=== PATIENT | male | born 1985 | race Caucasian/White ===

== ENCOUNTER 2018-05-24 00:16 | Emergency (ER) | payer OTHER ==
[~2018-05-24] VITALS: Ht 185.4 cm; Wt 88.5 kg
[~2018-05-24 00:16] MED LIST: ACYC800 PO; BUDE200IP IH; CLOT1TC TOP; CYCL10 PO; DIAZ5 PO; HYDACE5 PO; IBUP600 PO; IBUP800 PO; MOMENI; Norco 5-325 Ta1 EACH PO; OXYACE5T PO; PROM25 PO; SULTRIDS PO; Zantac150 MG PO
[2018-05-24 01:49] LABS: BASOPHILS ABSOLUTE AUTO 0.07 K/mm3 (0.00-0.23); BASOPHILS PERCENT AUTO 1 % (0-2); EOSINOPHILS ABSOLUTE AUTO 0.35 K/mm3 (0.00-0.68); EOSINOPHILS PERCENT AUTO 4 % (0-6); Hematocrit 42.5 % (37.0-53.0); Hemoglobin 14.6 g/dL (13.5-17.5); IMMATURE GRAN ABSOLUTE AUTO 0.04 K/mm3 (0.00-0.10); IMMATURE GRAN PERCENT AUTO 0 % (0-1); LYMPHOCYTES ABSOLUTE AUTO 2.71 K/mm3 (0.84-5.20); LYMPHOCYTES PERCENT AUTO 28 % (21-46); MONOCYTES ABSOLUTE AUTO 0.57 K/mm3 (0.16-1.47); MONOCYTES PERCENT AUTO 6 % (4-13); Mean Corpuscular HGB 29.9 pg (26.0-34.0); Mean Corpuscular HGB Conc 34.4 g/dL (31.5-36.5); Mean Corpuscular Volume 87 fL (80-100); Mean Platelet Volume 9.6 fL (9.1-12.4); NEUTROPHILS ABSOLUTE AUTO 5.97 K/mm3 (1.96-9.15); NEUTROPHILS PERCENT AUTO 62 % (41-73); Platelet Count 247 K/mm3 (150-400); RDW Coefficient Variation 12.4 % (11.7-14.2); RDW Standard Deviation 39.2 fL (35.1-46.3); Red Blood Cell Count 4.88 M/mm3 (4.30-5.90); White Blood Cell Count 9.71 K/mm3 (4.00-11.30)
[2018-05-24 01:50] LABS: Alanine Aminotransfer (ALT/SGP 32 U/L (12-78); Albumin, Blood 4.1 g/dL (3.4-5.0); Albumin/Globulin Ratio 1.1 (0.8-1.8); Alk Phos 83 U/L (50-136); Anion Gap 11 mmol/L (6-16); Aspartate Aminotrans (AST/SGOT 44 U/L (12-37); Bilirubin, Total 0.3 mg/dL (0.1-1.0); Blood Urea Nitrogen 9 mg/dL (8-24); Bun/Creatinine Ratio 13.3 (12.0-20.0); CO2, Blood 24 mmol/L (21-32); Calcium, Blood 8.2 mg/dL (8.5-10.1); Chloride, Blood 108 mmol/L (98-108); Creatinine, Blood 0.68 mg/dL (0.60-1.20); Globulin, Blood 3.7 g/dL (2.2-4.0); Glomerular Filtration Rate >60 (60-); Glucose, Blood 101 mg/dL (70-99); Potassium, Blood 5.8 mmol/L (3.5-5.5); Sodium, Blood 143 mmol/L (136-145); Total Protein, Blood 7.8 g/dL (6.4-8.2)
[2018-05-24 02:03] LABS: Ethanol (Alcohol), Blood, Med 322 mg/dL
[2018-05-24 02:04] LABS: International Normalized Ratio 1.04; Prothrombin Time Results 10.7 Sec (9.7-11.5)
== END 2018-05-24 04:04 | disposition short-term general hospital (02) ==
LOC: ER 00:16
PROVIDERS: Emergency Medicine
DX: S06.6X9A Traumatic subarachnoid hemorrhage with loss of consciousness of unspecified duration, initial encounter (principal); S02.19XA Other fracture of base of skull, initial encounter for closed fracture; S02.119A Unspecified fracture of occiput, initial encounter for closed fracture; F10.129 Alcohol abuse with intoxication, unspecified; F17.200 Nicotine dependence, unspecified, uncomplicated; Z88.5 Allergy status to narcotic agent; W17.89XA Other fall from one level to another, initial encounter; Y92.481 Parking lot as the place of occurrence of the external cause; Y90.8 Blood alcohol level of 240 mg/100 ml or more
CPT/HCPCS: 36415; 70450; 71045; 72125; 80053; 85025; 85610; 85730; 96374; 99285; G0480; J1953

== ENCOUNTER 2018-06-12 07:57 | Emergency (ER) | payer OTHER, BC ==
[~2018-06-12] VITALS: Ht 185.4 cm; Wt 93.0 kg
[2018-06-12] MEDS ORDERED: Norco 5-325 Ta1 EACH PO (13:30)
== END 2018-06-12 13:58 | disposition home or self-care (01) ==
LOC: ER 07:57
DX: I62.02 Nontraumatic subacute subdural hemorrhage (principal); F17.200 Nicotine dependence, unspecified, uncomplicated; Z88.5 Allergy status to narcotic agent
CPT/HCPCS: 36415; 70450; 70496; 96360; 99284-25; J7030; Q9967

== ENCOUNTER 2018-07-01 12:20 | Emergency (ER) | payer BC, OTHER ==
[~2018-07-01] VITALS: Ht 185.4 cm; Wt 97.5 kg
== END 2018-07-01 14:08 | disposition home or self-care (01) ==
LOC: ER 12:20
DX: R51 Headache (principal); F17.200 Nicotine dependence, unspecified, uncomplicated; Z88.5 Allergy status to narcotic agent
CPT/HCPCS: 70450; 99283-25

== ENCOUNTER 2023-08-30 21:30 | Observation (INO) | payer OTHER ==
[~2023-08-30] VITALS: Ht 188 cm; Wt 96.2 kg
[2023-08-30 22:58] LABS: BASOPHILS ABSOLUTE AUTO 0.04 K/mm3 (0.00-0.23); BASOPHILS PERCENT AUTO 0 % (0-2); EOSINOPHILS ABSOLUTE AUTO 0.27 K/mm3 (0.00-0.68); EOSINOPHILS PERCENT AUTO 3 % (0-6); Hematocrit 40.7 % (37.0-53.0); Hemoglobin 14.1 g/dL (13.5-17.5); IMMATURE GRAN ABSOLUTE AUTO 0.02 K/mm3 (0.00-0.10); IMMATURE GRAN PERCENT AUTO 0 % (0-1); LYMPHOCYTES ABSOLUTE AUTO 1.96 K/mm3 (0.84-5.20); LYMPHOCYTES PERCENT AUTO 18 % (21-46); MONOCYTES ABSOLUTE AUTO 0.72 K/mm3 (0.16-1.47); MONOCYTES PERCENT AUTO 7 % (4-13); Mean Corpuscular HGB 30.6 pg (26.0-34.0); Mean Corpuscular HGB Conc 34.6 g/dL (31.5-36.5); Mean Corpuscular Volume 88 fL (80-100); Mean Platelet Volume 9.9 fL (9.1-12.4); NEUTROPHILS ABSOLUTE AUTO 7.73 K/mm3 (1.96-9.15); NEUTROPHILS PERCENT AUTO 72 % (41-73); Platelet Count 233 K/mm3 (150-400); RDW Coefficient Variation 12.3 % (11.7-14.2); RDW Standard Deviation 39.8 fL (35.1-46.3); Red Blood Cell Count 4.61 M/mm3 (4.30-5.90); White Blood Cell Count 10.74 K/mm3 (4.00-11.30)
[2023-08-30 23:16] LABS: Albumin/Globulin Ratio 1.2 (0.8-1.8); Bilirubin, Total 0.2 mg/dL (0.1-1.0); Bun/Creatinine Ratio 10.9 (12.0-20.0); Creatinine, Blood 0.73 mg/dL (0.60-1.20); Globulin, Blood 3.3 g/dL (2.2-4.0); Potassium, Blood 4.1 mmol/L (3.5-5.5); Total Protein, Blood 7.3 g/dL (6.4-8.2)
[2023-08-31] VITALS (13 sets, daily range): BP systolic 144–168; BP diastolic 72–99
--- NOTE | 2023-08-31 00:14 | NUR ---
ARRIVAL PT ARRIVED TO FLOOR VIA GOURNEY. TRANSFERRED TO BED VIA SLIDER. A&0x4. VSS. LEFT EXTREMITY ANDREIA WRAPPED WITH SPLINT. FLUIDS RUNNING, MEDICATED PER EMAR FOR PAIN. PT REPORTS PAIN NOT ADEQUATELY COVERED. PT EDUCATED ABOUT PAIN MANAGEMENT AND LIMITATIONS WHEN USING ALCOHOL DAILY/MAR[place] WEEKLY AT HOME. ONE PERSONAL ITEM BAG. ORIENTED TO ROOM/UNIT. BED IN LOWEST POSITION, CALL LIGHT WITHIN REACH.
--- NOTE | 2023-08-31 05:03 | NUR ---
SHIFT SUMMARY PT ADMIT c LEFT TIB/FIB FX. PT NPO SINCE MIDNIGHT AWAITING SURGICAL CONSULT. PT ON BEDREST. NO ACUTE CHANGES OVERNIGHT. A&O x4. VSS. PT REPORTS DRINKING 2-3 BEERS ON WEEKNIGHTS AND "BINGE" DRINKING ON WEEKENDS. CIWA PRECAUTIONS IN PLACE, NO SIGNIFICANT SCORES OVERNIGHT. PT PAIN MEDICATED PER EMAR. BED IN LOWEST POSITION, CALL LIGHT WITHIN REACH, WILL REPORT TO DAY RN.
--- NOTE | 2023-08-31 06:34 | NUR ---
CHANGE PT SHORTS REMOVED VIA TRAUMA LEONARDO. PT CONSENTED TO HAVING CLOTHING CUT OFF AND DISPOSED OF. PT PUT INTO GOWN AND PRE-OP WIPE-DOWN COMPLETE.
--- NOTE | 2023-08-31 14:02 | NUR ---
PATIENT WAS TAKEN BACK TO THE OR.
[2023-08-31 17:40] LABS: Hematocrit 35.7 % (37.0-53.0); Hemoglobin 12.4 g/dL (13.5-17.5)
--- NOTE | 2023-08-31 20:45 | NUR ---
ARRIVAL TO UNIT PT ARRIVED FROM PACU ON BED. WEANED OFF 02, MAINTAINING O2 SAT>95% ON RA. PT SLEEPY, STATES "I'M EXHAUSTED," RESPONDS TO VERBAL STIMULI. LEFT LEG ELEVATED, ICE PACK IN PLACE. PT STATES PAIN TOLERATBLE AT THIS TIME. ANDREIA WRAP C/D/I. AT BEDSIDE. CALL LIGHT WITHIN REACH, BED IN LOWEST POSITION.
[2023-09-01 03:28] VITALS: BP 146/98
--- NOTE | 2023-09-01 04:21 | NUR ---
SHIFT SUMMARY POD 1 L TIB/FIB FX REPAIR. NO ACUTE CHANGES OVERNIGHT. VS WNL FOR PT, O2 SAT >95% ON RA. A&O x4. PT TOLERATING ORALS. PAIN MEDICATION PO ONLY AT THIS TIME. PT REPORTS PAIN MANAGEMENT TOLERABLE. SALIENE LOCKED. PT USING URINAL, NO BM OVERNIGHT. PT HAS NOT ATTEMPTED TO GET OUT OF BED THIS SHIFT. L LEG IS ELEVATED WITH ICE PACKS IN PLACE. CALL LIGHT IN REACH, BED IN LOWEST POSITION, WILL REPORT TO DAY RN.
[2023-09-01 07:23] VITALS: BP 147/94
--- NOTE | 2023-09-01 07:45 | NUR ---
THERE IS NO FLORES PRESENT IN PATIENT AT THE TIME OF A.M. ASSESSMENT.
[2023-09-01 12:30] VITALS: BP 156/97
[2023-09-01] MEDS ORDERED: OXYC5 PO (16:26)
--- NOTE | 2023-09-01 16:45 | NUR ---
DISCHARGE SUMMARY PT A&OX4, VSS/RA, LARRY PO, VOIDING, PAIN MANAGED, IV DC'D. WORKED WITH PHYSICAL THERAPY: AMB W/FWW SBA, UP TO CHAIR. DC INS PROVIDED. PT AND REPORTED UNDERSTANDING THOSE INSTRUCTIONS INCLUDING NARC SCRIPT AT [facility], FU WITH DR STOCKTON, ICE AND ELEVATE AT REST, TCDB/I.S., WHEN TO CALL THE SURGEON. LEFT FLOOR VIA WC WITH ALL PERSONAL POSSESSIONS TO GO HOME WITH .
--- NOTE | 2023-09-04 10:34 | NUR ---
09/04/23 1034 Nadege Muñoz VERIFICATIONS: EDIT CHART.
== END 2023-09-01 17:00 | disposition home or self-care (01) ==
LOC: ER 21:30 → SURS 21:31
PROVIDERS: Anesthesiology; Physician Assistant; ADMIT Orthopaedic Surgery
PROC: 0QSH06Z Reposition Left Tibia with Intramedullary Internal Fixation Device, Open Approach (ICD-10-PCS; principal; 2023-08-30)
DX: S82.252A Displaced comminuted fracture of shaft of left tibia, initial encounter for closed fracture (principal); S82.452A Displaced comminuted fracture of shaft of left fibula, initial encounter for closed fracture; W22.8XXA Striking against or struck by other objects, initial encounter; F17.200 Nicotine dependence, unspecified, uncomplicated
CPT/HCPCS: 27752; 73590; 80053; 85014; 85018; 85025; 86850; 86900; 86901; 96374-59; 96375; 96376; 97110; 97116; 97161; 97530; 99285-25; A9270; C1769; G0378; J0690; J1100; J1170; J1885; J2250; J2405; J2704; J3010; J7120

== ENCOUNTER 2024-12-07 06:01 | Day surgery (SDC) | payer OTHER ==
[~2024-12-07] VITALS: Ht 181 cm; Wt 102.6 kg
[2024-12-07] VITALS (8 sets, daily range): BP systolic 98–142; BP diastolic 62–97
[~2024-12-07 06:01] MED LIST changes: +OXYC5 PO
[2024-12-07] MEDS ORDERED: Lactated Ringer's 1,000 ML IV SCH (06:20)
[2024-12-07] MEDS ORDERED: CeFAZolin Sodium 2,000 MG in NS 100 ML IV SCH (06:20)
[2024-12-07] MEDS ORDERED: propofoL 20 ML IV ONE (06:58)
[2024-12-07] MEDS ORDERED: FentaNYL Citrate 50 MCG/ML 2 ML Injection ONE (06:58)
[2024-12-07] MEDS ORDERED: Lidocaine HCl 2% 20 ML MDV ONE (06:59)
[2024-12-07] MEDS ORDERED: Ondansetron HCl 2 MG / ML 2ML Vial ONE (06:59)
[2024-12-07] MEDS ORDERED: Dexamethasone Sod Phos 10 MG/ML 1ML VIAL ONE (06:59)
[2024-12-07] MEDS ORDERED: Bupivacaine 0.5% HCl 5 MG/ML 30MLVIAL ONE (07:05)
[2024-12-07] MEDS ORDERED: Midazolam HCl 1MG / ML 2ML Vial IV ONE (07:20)
--- NOTE | 2024-12-07 07:20 | NUR ---
History, Chart, Medications and Allergies reviewed before start of procedure. Patient up to Ambulate independently. Gait steady. Pre-Op teaching done. Pt verbalizes understanding. Patient confirms NPO status and agrees with scheduled surgery. Patient reports completing Chlorhexadine shower X2 prior to admission to hospital. Surgical site prepped with 2% Chlorhexidine cloth wipe. Patient States Post-Procedure ride home has been arranged.
[2024-12-07] MEDS ORDERED: Midazolam HCl 1MG / ML 2ML Vial ONE (07:22)
[2024-12-07] MEDS ORDERED: Dexmedetomidine HCL 200 MCG / 2 ML ONE (08:00)
[2024-12-07] MEDS ORDERED: OxyCODONE 5 mg/Acetamin 325 mg TABLET PO PRN (08:35)
--- NOTE | 2024-12-07 09:38 | NUR ---
ABLE TO TRANSFER TO RECLINER INDEPENDENTLY. TOLERATED JUICE AND PUDDING WELL. Discharge instructions reviewed with patient. Patient verbalizes understanding. Copy given to patient to take home. PT REPORTED PAIN OF 2/10. SEE EMAR FOR PAIN MEDS GIVEN. Discharged via wheelchair to private car for ride home WITH .
== END 2024-12-07 09:35 | disposition home or self-care (01) ==
LOC: ORSCMMR 06:01 → ORD 07:30 → ORSCMMR 09:35
PROVIDERS: Surgery
PROC: 0JH63WZ Insertion of Totally Implantable Vascular Access Device into Chest Subcutaneous Tissue and Fascia, Percutaneous Approach (ICD-10-PCS; principal; 2024-12-07 07:30)
PROC: 05HM33Z Insertion of Infusion Device into Right Internal Jugular Vein, Percutaneous Approach (ICD-10-PCS; principal; 2024-12-07 07:30)
PROC: B543ZZA Ultrasonography of Right Jugular Veins, Guidance (ICD-10-PCS; principal; 2024-12-07 07:30)
DX: C62.11 Malignant neoplasm of descended right testis (principal); J45.909 Unspecified asthma, uncomplicated; K21.9 Gastro-esophageal reflux disease without esophagitis; E66.9 Obesity, unspecified; Z68.31 Body mass index [BMI] 31.0-31.9, adult; Z79.899 Other long term (current) drug therapy; F17.210 Nicotine dependence, cigarettes, uncomplicated
CPT/HCPCS: 77001; A9270; C1788; J0690; J1100; J1642; J2250; J2405; J2704; J3010; J7120

== ENCOUNTER 2024-12-17 14:22 | Day surgery (SDC) | payer OTHER ==
[2024-12-17] MEDS ORDERED: NS 1,000 ML IV SCH (14:45)
[2024-12-17 15:35] VITALS: BP 152/85
--- NOTE | 2024-12-17 15:47 | NUR ---
PATIENT REPORTS THAT HE HAS RUN OUT OF ANTINAUSEA MEDICATIONS AND HE CANT KEEP ANYTHING DOWN. CALLED [facility] TO GET AN ORDER FOR AN IV ANTIEMETIC AND TO ASK THAT A PRESCRIPTION FOR PO BE SENT TO PATIENT PHARMACY. THE MA AT [facility] SAID THERE IS NO PROVIDER IN THE OFFICE TODAY BUT THAT THEY WOULD REACH OUT TO LENIN CHAN. UPDATED PATIENT
== END 2024-12-17 16:50 | disposition home or self-care (01) ==
LOC: ATC 14:22
DX: C62.11 Malignant neoplasm of descended right testis (principal); F17.200 Nicotine dependence, unspecified, uncomplicated; Z88.5 Allergy status to narcotic agent
CPT/HCPCS: 96360; J1642; J7030